=== PATIENT | male | born 1965 | race Caucasian/White ===

== ENCOUNTER 2019-08-23 15:44 | Emergency (ER) | payer OTHER ==
[2019-08-23 16:02] VITALS: BP 118/70; PULSE 76
[2019-08-23 17:05] LABS: CHLORIDE,CL 104 mEq/L (98-106); SODIUM,NA 139 mEq/L (136-145)
--- NOTE | 2019-08-23 18:04 | EDM.PDOC ---
ED HPI GENERAL MEDICAL PROBLEM - General Chief Complaint: Gastrointestinal Problem Stated Complaint: DIZZY/NAUSEA Time Seen by Provider: 08/23/19 16:15 Source of Information: Reports: Patient History Limitations: Reports: No Limitations - History of Present Illness INITIAL COMMENTS - FREE TEXT/NARRATIVE: Mich is a 53 yo male who presents to the ED via private vehicle and ambulatory. He complains of lightheadedness, nausea and "room spinning" for almost a year now. States today it was worse while he was working at a . He has been worked up by [employer] for this and has seen Dr. Padgett as well. Previous tests included a stress test, CT of the brain, MRI of the brain, ENT referral with inner ear exams among other things. He states there has been no known cause found. States around 1415 this afternoon while working at the he noticed his typical symptoms were worsening. Started to notice seeing more sports in his vision than he typically does. Admits he started to get a nauseated feeling but that has mostly subsided. - Related Data Allergies Allergy/AdvReac Type Severity Reaction Status Date / Time iodine Allergy Fainting Verified 08/23/19 16:03 Home Meds: Home Meds Fludrocortisone [Fludrocortisone Acetate] 0.1 mg PO DAILY 08/23/19 [History] Past Medical History HEENT History: Reports: Other (See Below) Other HEENT History: per pt hx of vertigo like sx. Other Respiratory History: PLEURAL EFFUSION 2004 Other Psychiatric History: 2010 SUICIDE COMTEMPLATION - Past Surgical History HEENT Surgical History: Reports: None Social & Family History - Family History Family Medical History: Noncontributory - Tobacco Use Smoking Status *Q: Current Some Day Smoker Years of Tobacco use: 10 Packs/Tins Daily: 0.1 - Caffeine Use Caffeine Use: Reports: Coffee - Recreational Drug Use Recreational Drug Use: No ED ROS GENERAL - Review of Systems Review Of Systems: See Below Constitutional: Denies: Fever, Chills, Weakness, Diaphoresis HEENT: Reports: Vision Change (seeing oval floaters like a football now. ) Respiratory: Reports: No Symptoms. Denies: Shortness of Breath Cardiovascular: Reports: Blood Pressure Problem (states he has a history of low blood pressures. ), Lightheadedness. Denies: Chest Pain, Dyspnea on Exertion, Edema, Palpitations, Syncope GI/Abdominal: Reports: Nausea. Denies: Abdominal Pain, Black Stool, Bloody Stool, Constipation, Diarrhea, Decreased Appetite, Vomiting : Reports: No Symptoms Musculoskeletal: Reports: No Symptoms Skin: Reports: No Symptoms Neurological: Reports: Dizziness, Pre-Existing Deficit. Denies: Headache, Numbness, Seizure, Syncope, Tingling, Difficulty Walking, Change in Speech, Gait Disturbance Psychiatric: Reports: No Symptoms ED EXAM, GENERAL - Physical Exam Exam: See Below Exam Limited By: No Limitations General Appearance: Alert, WD/WN, No Apparent Distress Eye Exam: Bilateral Eye: Abnormal Pupil, EOMI, PERRL (Known history of different size in pupils), Vision Changes Ears: Normal External Exam, Normal Canal, Hearing Grossly Normal, Normal TMs Nose: Normal Inspection, Normal Mucosa, No Blood Throat/Mouth: Normal Inspection, Normal Lips, Normal Teeth, Normal Gums, Normal Oropharynx, No Airway Compromise Head: Atraumatic, Normocephalic Neck: Normal Inspection, Supple, Non-Tender Respiratory/Chest: No Respiratory Distress, Lungs Clear, Normal Breath Sounds, No Accessory Muscle Use Cardiovascular: Regular Rate, Rhythm, No Murmur GI/Abdominal: Normal Bowel Sounds, Soft, No Organomegaly Extremities: Normal Inspection, Normal Range of Motion, Non-Tender, No Pedal Edema, Normal Capillary Refill Neurological: Alert, Oriented, CN II-XII Intact, Normal Cognition, Normal Gait, No Motor/Sensory Deficits Psychiatric: Normal Affect, Normal Mood Skin Exam: Warm, Dry, Intact, Normal Color, No Rash EKG INTERPRETATION EKG Date: 08/23/19 Time: 16:55 Rhythm: Other (sinus rhythm) Rate (Beats/Min): 71 Comparison: NA - No Prior EKG Course - Vital Signs Last Recorded V/S: Last Vital Signs Temp 96.9 F 08/23/19 16:00 Pulse 76 08/23/19 16:00 Resp 14 08/23/19 16:00 BP 118/70 08/23/19 16:00 Pulse Ox 97 08/23/19 16:00 - Orders/Labs/Meds Orders: Active Orders 24 hr Category Date Time Status Head wo Cont [CT] Stat Exams 08/23/19 16:38 Taken Labs: Laboratory Tests 08/23/19 08/23/19 08/23/19 Range/Units 16:40 16:45 16:45 WBC 6.6 (5.0-10.0) 10^3/uL RBC 4.41 L (4.50-6.00) 10^6/uL Hgb 13.9 L (14.0-18.0) g/dL Hct 39.0 L (40.0-54.0) % MCV 88.4 (82.0-94.0) fL MCH 31.5 (27.0-32.0) pg MCHC 35.6 (33.0-38.0) g/dL RDW Coeff of Arias 12.1 (11.0-15.0) % Plt Count 270 (150-400) 10^3/uL Neut % (Auto) 49.5 (35-85) % Lymph % (Auto) 32.4 (10-55) % Cloud % (Auto) 13.0 (0-16) % Eos % (Auto) 4.3 (0-5) % Baso % (Auto) 0.8 (0-3) % Neut # (Auto) 3.25 (1.80-7.00) 10^3/uL Lymph # (Auto) 2.12 (1.00-4.80) 10^3/uL Cloud # (Auto) 0.85 H (0.00-0.80) 10^3/uL Eos # (Auto) 0.28 (0.00-0.45) 10^3/uL Baso # (Auto) 0.05 10^3/uL ESR 12 (0-15) mm/hr PT 10.7 (9.7-12.3) SEC INR 1.04 (0.92-1.18) APTT 26.8 (23.2-32.3) SEC Sodium (136-145) mEq/L Potassium (3.5-5.0) mEq/L Chloride (98-106) mEq/L Carbon Dioxide (21-32) mmol/L BUN (7-18) mg/dL Creatinine (0.7-1.3) mg/dL Est Cr Clr Drug Dosing mL/min Estimated GFR (MDRD) (>=60) mL/min Glucose (75-99) mg/dL Calcium (8.4-10.1) mg/dL Total Bilirubin (0.0-1.0) mg/dL AST (15-37) U/L ALT (12-78) U/L Alkaline Phosphatase (46-116) U/L Creatine Kinase (35-232) U/L Troponin I (0.00-0.06) ng/mL Total Protein (6.4-8.2) g/dL Albumin (3.4-5.0) g/dL Urine Color Light yellow (YELLOW) Urine Appearance Clear (CLEAR) Urine pH 7.0 (4.5-8.0) Ur Specific [place] 1.010 (1.003-1.020) Urine Protein Negative (NEGATIVE) mg/dL Urine Glucose (UA) Negative (NEGATIVE) mg/dL Urine Ketones Negative (NEGATIVE) mg/dL Urine Occult Blood Negative (NEGATIVE) Urine Nitrite Negative (NEGATIVE) Urine Bilirubin Negative (NEGATIVE) Urine Urobilinogen 0.2 (0.2-1.0) EU/dL Ur Leukocyte Esterase Negative (NEGATIVE) 08/23/19 Range/Units 16:45 WBC (5.0-10.0) 10^3/uL RBC (4.50-6.00) 10^6/uL Hgb (14.0-18.0) g/dL Hct (40.0-54.0) % MCV (82.0-94.0) fL MCH (27.0-32.0) pg MCHC (33.0-38.0) g/dL RDW Coeff of Arias (11.0-15.0) % Plt Count (150-400) 10^3/uL Neut % (Auto) (35-85) % Lymph % (Auto) (10-55) % Cloud % (Auto) (0-16) % Eos % (Auto) (0-5) % Baso % (Auto) (0-3) % Neut # (Auto) (1.80-7.00) 10^3/uL Lymph # (Auto) (1.00-4.80) 10^3/uL Cloud # (Auto) (0.00-0.80) 10^3/uL Eos # (Auto) (0.00-0.45) 10^3/uL Baso # (Auto) 10^3/uL ESR (0-15) mm/hr PT (9.7-12.3) SEC INR (0.92-1.18) APTT (23.2-32.3) SEC Sodium 139 (136-145) mEq/L Potassium 4.2 (3.5-5.0) mEq/L Chloride 104 (98-106) mEq/L Carbon Dioxide 24 (21-32) mmol/L BUN 15 (7-18) mg/dL Creatinine 1.1 (0.7-1.3) mg/dL Est Cr Clr Drug Dosing 76.86 mL/min Estimated GFR (MDRD) > 60 (>=60) mL/min Glucose 98 (75-99) mg/dL Calcium 8.8 (8.4-10.1) mg/dL Total Bilirubin 0.4 (0.0-1.0) mg/dL AST 25 (15-37) U/L ALT 38 (12-78) U/L Alkaline Phosphatase 48 (46-116) U/L Creatine Kinase 350 H (35-232) U/L Troponin I < 0.017 (0.00-0.06) ng/mL Total Protein 7.3 (6.4-8.2) g/dL Albumin 3.8 (3.4-5.0) g/dL Urine Color (YELLOW) Urine Appearance (CLEAR) Urine pH (4.5-8.0) Ur Specific [place] (1.003-1.020) Urine Protein (NEGATIVE) mg/dL Urine Glucose (UA) (NEGATIVE) mg/dL Urine Ketones (NEGATIVE) mg/dL Urine Occult Blood (NEGATIVE) Urine Nitrite (NEGATIVE) Urine Bilirubin (NEGATIVE) Urine Urobilinogen (0.2-1.0) EU/dL Ur Leukocyte Esterase (NEGATIVE) Departure - Departure Time of Disposition: 18:10 Disposition: Home, Self-Care 01 Clinical Impression: Dizziness, nonspecific Floaters in visual field Qualifiers: Laterality: bilateral Qualified Code(s): H43.393 - Other vitreous opacities, bilateral - Discharge Information Referrals: PCP,Unknown [Primary Care Provider] - Forms: ED Department Discharge Additional Instructions: 1) CT head was negative for any acute strokes, etc... 2) Labs overall were all unremarkable to include cardiac workup. 3) Recommend optometry consultation/referral. Will try to set up for you in the morning. 4) Recommend no driving while seeing floaters 5) If symptoms worsen or any concerns at all after being discharged, recommend returning for reevaluation - Problem List & Annotations (1) Dizziness, nonspecific SNOMED Code(s): 289803492, 086821463 Code(s): R42 - DIZZINESS AND GIDDINESS Status: Acute Current Visit: Yes (2) Floaters in visual field SNOMED Code(s): 36982137, 092355435 Code(s): H43.399 - OTHER VITREOUS OPACITIES, UNSPECIFIED EYE Status: Acute Current Visit: Yes Qualifiers: Laterality: bilateral Qualified Code(s): H43.393 - Other vitreous opacities , bilateral - Problem List Review Problem List Initiated/Reviewed/Updated: Yes - My Orders Last 24 Hours: My Active Orders 08/23/19 16:38 Head wo Cont [CT] Stat - Assessment/Plan Last 24 Hours: My Active Orders 08/23/19 16:38 Head wo Cont [CT] Stat Plan: Physical exam was unremarkable today. CT head negative. Labs overall unremarkable. Will look at discharging home at this time. Recommend seeing optometry which I will look at getting a referral tomorrow morning for Mich. See additional instructions.
== END 2019-08-23 18:24 | disposition home or self-care (01) ==
LOC: CC.ED 15:44
DX: H43.393 Other vitreous opacities, bilateral (principal); R42 Dizziness and giddiness; F17.210 Nicotine dependence, cigarettes, uncomplicated; Z91.048 Other nonmedicinal substance allergy status
CPT/HCPCS: 36415; 70450; 80053; 81003; 82550; 84484; 85025; 85610; 85651; 85730; 93005; 99284-25